=== PATIENT | female | born 1975 | race African-American/Black ===

== ENCOUNTER 2024-12-27 16:52 | Emergency (ER) | payer BC, MEDICAID, OTHER ==
[~2024-12-27] VITALS: Ht 149.9 cm; Wt 54.4 kg
[2024-12-27 17:50] LABS: BASOPHILS % 1.1 % (0.0-2.0); EOSINOPHILS % 1.4 % (0.0-5.0); HEMATOCRIT. 26.0 % (36.0-48.0); HEMOGLOBIN. 8.0 g/dL (12.0-16.0); LYMPHOCYTES % 26.7 % (20.0-50.0); MEAN PLATELET VOLUME 8.1 fl (7.4-10.4); MONOCYTES % 8.5 % (2.0-8.0); NEUTROPHILS % 62.3 % (40.0-76.0); PLATELET 194 x1000/uL (130-400); RED BLOOD CELL COUNT 3.71 mill/uL (4.2-5.4); RED CELL DISTRIBUTION WIDTH 21.9 % (11.6-14.6)
[2024-12-27 18:02] LABS: CREATININE 1.0 mg/dL (0.6-1.0)
[2024-12-27 18:03] LABS: TROPONIN I HIGH SENSITIVITY 34 ng/L (3.0-34); UREA NITROGEN BLOOD 21 mg/dL (9-23)
[2024-12-27 18:13] LABS: HCG SCREEN NEGATIVE
[2024-12-27 18:21] VITALS: PULSE 100; RESP 26; O2SAT 100
[2024-12-27] MEDS: IPRATROPIUM/ALBUTEROL 0.5-3(2.5)MG/3ML NEB HHN SCH (18:26)
[2024-12-27 18:35] VITALS: TEMP 36.8
[2024-12-27] MEDS: CLONIDINE 0.1MG TABLET PO SCH (19:17)
[2024-12-27] MEDS: HYDRALAZINE 20MG/ML VIAL IV NR (21:10)
[2024-12-27] MEDS ORDERED: HYDRALAZINE 20MG/ML VIAL IV ONE (22:00)
[2024-12-27 23:20] VITALS: BP 156/92; PULSE 100; RESP 20; O2SAT 95
[2024-12-29] MEDS ORDERED: AMLO5TAB88 PO (13:10)
[2024-12-29] MEDS ORDERED: METH-773 PO (13:10)
[2024-12-29] MEDS ORDERED: LOSA25TA26 PO (13:10)
== END 2024-12-28 00:10 | disposition home or self-care (01) ==
LOC: ER 17:10 → CMPBEDREQ 12-29 07:42
DX: J44.1 Chronic obstructive pulmonary disease with (acute) exacerbation (principal); I16.0 Hypertensive urgency; I10 Essential (primary) hypertension; F17.200 Nicotine dependence, unspecified, uncomplicated; Z98.890 Other specified postprocedural states; Z20.822 Contact with and (suspected) exposure to COVID-19
CPT/HCPCS: 99291; 96374; 87426; 80048; 84703; 83880; 85025; 84484; 36415; 71045; 94640; 93005; J0360